=== PATIENT | male | born 1960 | race Caucasian/White ===

== ENCOUNTER 2023-03-07 19:00 | Inpatient (IN) ==
[2023-03-07 20:19] LABS: HEMOGLOBIN 7.7 g/dL (13.5-18.0); MEAN CORPUSCULAR VOLUME 85.6 fL (80.0-100.0)
[2023-03-07 20:26] LABS: BASOPHILS # (AUTO) 0.1 X10^3/uL (0.0-0.1); EOSINOPHILS # (AUTO) 0.2 x10^3/uL (0.0-0.2); EOSINOPHILS % (AUTO) 2.4 % (0.9-2.9); HEMATOCRIT 23.3 % (42.0-54.0); LYMPHOCYTES # (AUTO) 1.1 X10^3/uL (1.3-2.9); LYMPHOCYTES % (AUTO) 10.7 % (21.0-51.0); MEAN CORPUSCULAR HEMOGLOBIN 28.3 pg (27.0-34.0); MEAN CORPUSCULAR HGB CONC 33.1 g/dL (33.0-35.0); MEAN PLATELET VOLUME 6.8 fL (7.4-11.0); MONOCYTES # (AUTO) 0.7 x10^3/uL (0.3-0.8); MONOCYTES % (AUTO) 6.2 % (0.0-13.0); NEUTROPHILS # (AUTO) 8.4 x10^3/uL (2.2-4.8); NEUTROPHILS % (AUTO) 79.7 % (42.0-75.0); PLATELET COUNT 360 X10^3/uL (150.0-450.0); RED BLOOD COUNT 2.72 X10^6/uL (4.7-6.0); RED CELL DISTRIBUTION WIDTH 16.3 % (11.6-16.5); WHITE BLOOD COUNT 10.5 X10^3/uL (3.6-10.0)
[2023-03-07 20:28] LABS: ALBUMIN 1.7 g/dL (3.4-5.0); CALCIUM 7.7 mg/dL (8.5-10.1); CARBON DIOXIDE 24.5 mmol/L (21-32); COR CA(FOR HYPOALB) 9.5 mg/dL (8.5-10.1); CREATININE 1.78 mg/dL (0.70-1.30); POTASSIUM 4.3 mmol/L (3.5-5.1); TOTAL PROTEIN 6.6 g/dL (6.4-8.2)
--- NOTE | 2023-03-07 21:07 | DR.EXTPAIN ---
HPI Time seen Time Seen by Provider: 03/07/23 19:47 PCP Primary Care Physician: Sushila Complaint/Symptoms Chief Complaint:: Patient stated he was sent per Dr. Plascencia for IV antibiotics and surgery in the morning. COVID-19 Coronavirus risk:travel/contact w/high risk person: No Has patient experienced Coronavirus symptoms: No Nurses notes reviewed Nurses Notes Review: Yes Source History Provided: Patient Mode of arrival Mode of Arrival: Ambulatory Timing Onset of Chief Complaint: 03/07/23 Associated signs and symptoms Associated Signs and Symptoms: Swelling PMH PMH Past Medical History: Yes Past Medical History: Depression, Diabetes and Gout Past Surgical History: No Family History History of Family Medical Conditions: No Social History Do you use any recreational Drugs:: No Travel Risk Coronavirus risk:travel/contact w/high risk person: No Has patient experienced Coronavirus symptoms: No Infectious screening In the last 2 months have you had wt loss of >10#?: NO Have you had fever, night sweats or hemotysis?: No Have you traveled outside the country in the last 6 months?: No Isolation: Standard ROS Review of Systems Integumentary: Wound (Diabetic ulcer left foot) PE Vital Signs Vitals: Vital Signs Temperature 99.1 F Pulse Rate 84 Respiratory Rate 20 Blood Pressure 121/58 O2 Sat by Pulse Oximetry 97 General Limitations: No Limitations General Appearance: Alert and In No Apparent Distress Head Head Exam: Normal Inspection Eyes Eye exam: Normal Appearance, PERRL and EOMI ENT ENT Exam: Normal Exam Neck Neck Exam: Normal Inspection Chest Chest Inspection: Normal Inspection Respiratory Respiratory Exam: Normal Lung Sounds Bilat Cardiovascular Cardiovascular Exam: Regular Rate Abdominal Exam Abdominal Exam: Normal Inspection Lower Extremities Foot/Toe Exam: Tenderness, Swelling and Other (Diabetic foot ulcer; no evidence cellulitis) Back Back Exam: Normal Inspection Neurological Neurological Exam: Alert, Oriented X3, CN II-XII Intact, Normal Gait and Reflexes Normal Psychiatric Psychiatric Exam: Normal Affect and Normal Mood Skin Skin Exam: Warm and Dry COURSE Treatment Treatment: Labs, CTA, IVFs, antibiotics Reevaluation 1st: Improved ROR Labs Reviewed Laboratory Results Reviewed?: Yes 03/07/23 20:01 03/07/23 20:01 Laboratory: 03/07/23 19:53 Foot - Right Wound Gram Stain - Final WBC 10.5 X10^3/uL (3.6-10.0) H 03/07/23 20: RBC 2.72 X10^6/uL (4.7-6.0) L 03/07/23 20: Hgb 7.7 g/dL (13.5-18.0) L 03/07/23 20: Hct 23.3 % (42.0-54.0) L 03/07/23 20: MCV 85.6 fL (80.0-100.0) 03/07/23 20: MCH 28.3 pg (27.0-34.0) 03/07/23 20: MCHC 33.1 g/dL (33.0-35.0) 03/07/23 20: RDW 16.3 % (11.6-16.5) 03/07/23 20: Plt Count 360 X10^3/uL (150.0-450.0) 03/07/23 20: MPV 6.8 fL (7.4-11.0) L 03/07/23 20: Neut % (Auto) 79.7 % (42.0-75.0) H 03/07/23 20: Lymph % (Auto) 10.7 % (21.0-51.0) L 03/07/23 20: [place] % (Auto) 6.2 % (0.0-13.0) 03/07/23 20: Eos % (Auto) 2.4 % (0.9-2.9) 03/07/23 20: Baso % (Auto) 1.0 % (0.2-1.0) 03/07/23 20: Neut # (Auto) 8.4 x10^3/uL (2.2-4.8) H 03/07/23 20: Lymph # (Auto) 1.1 X10^3/uL (1.3-2.9) L 03/07/23 20: [place] # (Auto) 0.7 x10^3/uL (0.3-0.8) 03/07/23 20: Eos # (Auto) 0.2 x10^3/uL (0.0-0.2) 03/07/23 20: Baso # (Auto) 0.1 X10^3/uL (0.0-0.1) 03/07/23 20:01 Absolute Nucleated RBC 0.0 /100WBC 03/07/23 20:01 Sodium 127 mmol/L (136-145) L 03/07/23 20:01 Corrected Sodium 130 mmol/L (136-145) L 03/07/23 20:01 Potassium 4.3 mmol/L (3.5-5.1) 03/07/23 20:01 Chloride 97 mmol/L (98-107) L 03/07/23 20:01 Carbon Dioxide 24.5 mmol/L (21-32) 03/07/23 20:01 BUN 21 mg/dL (7-18) H 03/07/23 20:01 Creatinine 1.78 mg/dL (0.70-1.30) H 03/07/23 20:01 Est GFR (MDRD) Af Amer 50 (>60) L 03/07/23 20:01 Est GFR (MDRD) Non-Af 42 (>60) L 03/07/23 20:01 Glucose 206 mg/dL (65-99) H 03/07/23 20:01 Lactic Acid 1.0 mmol/L (0.4-2.0) 03/07/23 20:01 Calcium 7.7 mg/dL (8.5-10.1) L 03/07/23 20:01 Corrected Calcium 9.5 mg/dL (8.5-10.1) 03/07/23 20:01 Total Bilirubin 0.20 mg/dL (0.2-1.0) 03/07/23 20:01 AST 16 Units/L (15-37) 03/07/23 20:01 ALT 15 Units/L (12-78) 03/07/23 20:01 Alkaline Phosphatase 221 Units/L (46-116) H 03/07/23 20:01 Total Protein 6.6 g/dL (6.4-8.2) 03/07/23 20:01 Albumin 1.7 g/dL (3.4-5.0) L 03/07/23 20:01 Globulin 4.9 g/dL (2.5-4.5) H 03/07/23 20:01 Albumin/Globulin Ratio 0.3 Ratio (1.1-2.1) L 03/07/23 20:01 XRAY XRAY Interpreted by: Radiologist Opioid Opioid Risk Tool Age (Rigoberto box if 16-45): No History of Preadolescent Sexual Abuse: No Total: 0 Total Score Risk Category: Low Risk Copyright: Raj BELLA predicting aberrant behaviors Discharge Plan Diagnosis Discharge Problem: Diabetic foot ulcer, Anemia Discharge Plan Patient Disposition: HOME, SELF-CARE Condition: Stable Prescriptions: No Action polysaccharide iron complex [iFerex 150] 150 mg iron Capsule 150 mg PO DAILY loratadine 10 mg Tablet 10 mg PO DAILY Jardiance 25 mg Tablet 25 mg PO DAILY pioglitazone 15 mg tablet 15 mg PO QDAY gabapentin 400 mg capsule 400 mg PO DAILY glimepiride 4 mg tablet 4 mg PO QDAY furosemide 20 mg tablet 20 mg PO QDAY gabapentin 100 mg capsule 100 mg PO DAILY lovastatin 20 mg tablet 20 mg PO QDAY sertraline 50 mg tablet 50 mg PO QDAY Health Concerns: Post Hospitalization: new medications and changes needed to prevent readmission or further decline. Pt educated and given instructions on all concerns. Plan of Treatment: Continue with present treatment and follow up plan. Pt is to keep follow up appointment as instructed and take medications as ordered. Orders to Discharge Patient Discharge Orders: Discharge (Routine); Ordered 03/07/23 Ordered By: Jean Nelson Follow ups/Referrals Follow ups/Referrals: MILTON JAFFE [Primary Care Provider] - 3 days Instructions Stand Alone Forms: Post Hospital Follow Up Care
[2023-03-07] MEDS ORDERED: OMNIPAQUE 350 mg/mL 50 mL BTL 50 ML ONE (21:19)
[2023-03-07] MEDS ORDERED: NS 100 ML IV 100 ML ONE (21:19)
[2023-03-07] MEDS ORDERED: OMNIPAQUE 350 mg/mL 100 mL BTL 100 ML ONE (21:19)
[2023-03-07] MEDS ORDERED: CLEOCIN 600 MG IV PREMIX 600 MG/50 ML BAG IV ONE (22:34)
[2023-03-07] MEDS ORDERED: NS 1,000 ML IV 1,000 ML ONE (22:34)
[2023-03-07] MEDS: CLEOCIN 600 MG IV PREMIX 600 MG/50 ML BAG IV SCH (22:41)
[2023-03-07] MEDS: NS 1,000 ML IV 1,000 ML IV SCH (22:41)
--- NOTE | 2023-03-07 22:48 | CT ---
EXAM:LOW EXT CTA W&W/O CONHISTORY:LOWER extremity EDEMA;COMPARISON:NoneTECHNIQUE:CT angiography of the bilateral lower extremities was performed before and after intravenous contrast. Three-dimensional reconstructions and/or MIPS images were produced and reviewed.FINDINGS:Precontrast images demonstrate moderate multifocal arterial calcifications. There is no pelvic free fluid. The colon portions visible appear appropriate. Portions of the kidneys visible appear appropriate. No free air. Small fatty inguinal hernias. There are enlarged right inguinal lymph nodes with a business representative node spanning 2.3 cm short axis dimension.There is advanced atherosclerotic plaque in the distal aorta extending into the common iliac bifurcation. The distal aorta is patent. The common iliac arteries are patent. The right internal and external iliac arteries are patent. The left internal and external iliac arteries are patent. The bilateral common femoral arteries are patent.The right superficial femoral artery demonstrates moderate focal narrowing above the knee.The left superficial femoral artery demonstrates mild focal narrowing at the same level. The bilateral popliteal arteries are patent.The right calf trifurcation is patent with flow noted to the ankle and foot. The left calf trifurcation demonstrates moderate multifocal atherosclerotic plaque in the posterior tibial artery with flow noted to the ankle and foot.There is moderate bilateral lower extremity edema. No tracking gas or abscess. No fracture or bony erosion.IMPRESSION:Multifocal atherosclerotic plaque most pronounced in the left posterior tibial artery.Right inguinal lymphadenopathy, nonspecific and of uncertain cause.Severe bilateral lower extremity soft tissue edema/anasarca.Dose reduction techniques including automated exposure control (AEC) and adjustment of mA and kv were utilized.THIS IS AN ELECTRONICALLY VERIFIED FINAL [id number]/07/2023 10:44 PM - Electronically signed by Rodríguez Villavicencio MD
[2023-03-07] MEDS ORDERED: CLEOCIN VIAL 600 MG IV SCH (23:45)
[2023-03-07] MEDS ORDERED: MORPHINE SULFATE INJ 4 MG IVP PRN (23:54)
[2023-03-07] MEDS ORDERED: ZOFRAN INJ 4 MG VIAL IVP PRN (23:55)
[2023-03-08 01:21] VITALS: BMI 32.5
[2023-03-08] MEDS: CLEOCIN 600 MG IV PREMIX 600 MG/50 ML BAG IV SCH ×3 (05:32→21:15)
[2023-03-08 06:28] LABS: BASOPHILS # (AUTO) 0.1 X10^3/uL (0.0-0.1); BASOPHILS % (AUTO) 0.6 % (0.2-1.0); EOSINOPHILS # (AUTO) 0.2 x10^3/uL (0.0-0.2); EOSINOPHILS % (AUTO) 2.2 % (0.9-2.9); HEMATOCRIT 23.9 % (42.0-54.0); LYMPHOCYTES # (AUTO) 0.9 X10^3/uL (1.3-2.9); MEAN CORPUSCULAR HEMOGLOBIN 28.7 pg (27.0-34.0); MEAN CORPUSCULAR HGB CONC 33.5 g/dL (33.0-35.0); MEAN CORPUSCULAR VOLUME 85.7 fL (80.0-100.0); MEAN PLATELET VOLUME 6.9 fL (7.4-11.0); MONOCYTES # (AUTO) 0.7 x10^3/uL (0.3-0.8); MONOCYTES % (AUTO) 6.9 % (0.0-13.0); NEUTROPHILS % (AUTO) 81.3 % (42.0-75.0); PLATELET COUNT 356 X10^3/uL (150.0-450.0); RED BLOOD COUNT 2.79 X10^6/uL (4.7-6.0); WHITE BLOOD COUNT 9.9 X10^3/uL (3.6-10.0)
[2023-03-08 06:30] LABS: ALANINE AMINOTRANSFERASE 16 Units/L (12-78); ALBUMIN 1.5 g/dL (3.4-5.0); ALKALINE PHOSPHATASE 237 Units/L (46-116); ASPARTATE AMINO TRANSFERASE 18 Units/L (15-37); BLOOD UREA NITROGEN 20 mg/dL (7-18); CALCIUM 7.5 mg/dL (8.5-10.1); CARBON DIOXIDE 24.2 mmol/L (21-32); CHLORIDE 101 mmol/L (98-107); COR CA(FOR HYPOALB) 9.5 mg/dL (8.5-10.1); COR NA(FOR HYPERGLY) 132 mmol/L (136-145); GLUCOSE 150 mg/dL (65-99); POTASSIUM 4.5 mmol/L (3.5-5.1); SODIUM 131 mmol/L (136-145); TOTAL PROTEIN 6.3 g/dL (6.4-8.2); eGFR NON BLACK RACES 55 (>60)
--- NOTE | 2023-03-08 13:53 | DR.H&P ---
H&P History & Physical for Day of: H&P Date: 03/08/23 Chief Complaint Chief Complaint: Right foot pain and swelling Allergies Allergies Allergy/AdvReac Type Severity Reaction Status Date / Time No Known Allergies Allergy Verified 03/07/23 19:45 History of Present Illness History of Present Illness: Patient is a 63-year-old male presenting with right foot pain and swelling. He does have a history of diabetic ulcers and cellulitis of the foot and leg. Labs/imaging: WBC 9.9, hemoglobin 8, platelets 356, sodium 132, potassium 4.5, creatinine 1.40, glucose 150, lower extremity CTA was obtained that revealed: Multifocal atherosclerotic plaque most pronounced in the left posterior tibial artery. Right inguinal lymphadenopathy, nonspecific and of uncertain cause. Severe bilateral lower extremity soft tissue edema/anasarca. Patient admitted for diabetic ulcer and cellulitis. Podiatry has been consultedDr. Hlad. Plan for possible incision and drainage of wound. We will follow-up recommendations. MRI has also been ordered. Patient is currently IV clindamycin for antibiotic coverage. Wound cultures pending. We will continue to closely monitor and follow-up labs/imaging. Past Medical History Past Medical History: Depression, Diabetes and Gout Family History Family Medical History: Diabetes Mellitus, Heart Failure and Hypertension Social History Does patient currently use any type of tobacco product: Yes Have you used tobacco products in the last 12 months: Yes Type of Tobacco Use: Cigarettes How many years tobacco product used: 50 Alcohol Use: Occasionally Drug Use: None Medications Home Medications: Home Medications Medication Instructions Recorded Confirmed Type empagliflozin 25 mg tablet 25 mg PO DAILY 11/15/22 11/15/22 History (Jardiance) loratadine 10 mg tablet 10 mg PO DAILY 11/15/22 11/15/22 History polysaccharide iron complex 150 mg 150 mg PO DAILY 11/15/22 11/15/22 History iron capsule (iFerex 150) furosemide 20 mg tablet 20 mg PO QDAY 03/07/23 03/07/23 History gabapentin 100 mg capsule 100 mg PO DAILY 03/07/23 03/07/23 History gabapentin 400 mg capsule 400 mg PO DAILY 03/07/23 03/07/23 History glimepiride 4 mg tablet 4 mg PO QDAY 03/07/23 03/07/23 History lovastatin 20 mg tablet 20 mg PO QDAY 03/07/23 03/07/23 History pioglitazone 15 mg tablet 15 mg PO QDAY 03/07/23 03/07/23 History sertraline 50 mg tablet 50 mg PO QDAY 03/07/23 03/07/23 History Labs 03/08/23 05:09 03/08/23 05:09 Labs: 03/07/23 19:53 Foot - Right Wound Gram Stain - Final 03/07/23 19:53 Foot - Right Wound Culture - Preliminary Laboratory WBC 9.9 X10^3/uL (3.6-10.0) 03/08/23 05:09 RBC 2.79 X10^6/uL (4.7-6.0) L 03/08/23 05:09 Hgb 8.0 g/dL (13.5-18.0) L 03/08/23 05:09 Hct 23.9 % (42.0-54.0) L 03/08/23 05:09 MCV 85.7 fL (80.0-100.0) 03/08/23 05:09 MCH 28.7 pg (27.0-34.0) 03/08/23 05:09 MCHC 33.5 g/dL (33.0-35.0) 03/08/23 05:09 RDW 16.0 % (11.6-16.5) 03/08/23 05:09 Plt Count 356 X10^3/uL (150.0-450.0) 03/08/23 05:09 MPV 6.9 fL (7.4-11.0) L 03/08/23 05:09 Neut % (Auto) 81.3 % (42.0-75.0) H 03/08/23 05:09 Lymph % (Auto) 9.0 % (21.0-51.0) L 03/08/23 05:09 [place] % (Auto) 6.9 % (0.0-13.0) 03/08/23 05:09 Eos % (Auto) 2.2 % (0.9-2.9) 03/08/23 05:09 Baso % (Auto) 0.6 % (0.2-1.0) 03/08/23 05:09 Neut # (Auto) 8.0 x10^3/uL (2.2-4.8) H 03/08/23 05:09 Lymph # (Auto) 0.9 X10^3/uL (1.3-2.9) L 03/08/23 05:09 [place] # (Auto) 0.7 x10^3/uL (0.3-0.8) 03/08/23 05:09 Eos # (Auto) 0.2 x10^3/uL (0.0-0.2) 03/08/23 05:09 Baso # (Auto) 0.1 X10^3/uL (0.0-0.1) 03/08/23 05:09 Absolute Nucleated RBC 0.0 /100WBC 03/08/23 05:09 Sodium 131 mmol/L (136-145) L 03/08/23 05:09 Corrected Sodium 132 mmol/L (136-145) L 03/08/23 05:09 Potassium 4.5 mmol/L (3.5-5.1) 03/08/23 05:09 Chloride 101 mmol/L (98-107) 03/08/23 05:09 Carbon Dioxide 24.2 mmol/L (21-32) 03/08/23 05:09 BUN 20 mg/dL (7-18) H 03/08/23 05:09 Creatinine 1.40 mg/dL (0.70-1.30) H 03/08/23 05:09 Est GFR (MDRD) Af Amer > 60 (>60) 03/08/23 05:09 Est GFR (MDRD) Non-Af 55 (>60) L 03/08/23 05:09 Glucose 150 mg/dL (65-99) H 03/08/23 05:09 POC Glucose (mg/dL) 142 mg/dL (65-99) H 03/08/23 11:14 Lactic Acid 1.0 mmol/L (0.4-2.0) 03/07/23 20:01 Calcium 7.5 mg/dL (8.5-10.1) L 03/08/23 05:09 Corrected Calcium 9.5 mg/dL (8.5-10.1) 03/08/23 05:09 Total Bilirubin 0.20 mg/dL (0.2-1.0) 03/08/23 05:09 AST 18 Units/L (15-37) 03/08/23 05:09 ALT 16 Units/L (12-78) 03/08/23 05:09 Alkaline Phosphatase 237 Units/L (46-116) H 03/08/23 05:09 Total Protein 6.3 g/dL (6.4-8.2) L 03/08/23 05:09 Albumin 1.5 g/dL (3.4-5.0) L 03/08/23 05:09 Globulin 4.8 g/dL (2.5-4.5) H 03/08/23 05:09 Albumin/Globulin Ratio 0.3 Ratio (1.1-2.1) L 03/08/23 05:09 Review of Systems Constitutional: No Symptoms Reported Eyes: No Symptoms Reported ENT: No Symptoms Reported Respiratory: No Symptoms Reported Cardiovascular: No Symptoms Reported Gastrointestinal: No Symptoms Reported Genitourinary: No Symptoms Reported Musculoskeletal: Foot Pain Skin: No Symptoms Reported Neurological: No Symptoms Reported Physical Exam Vital Signs: Vital Signs Temperature 97.9 F Temperature 98.9 F Pulse Rate [Left Radial] 80 Pulse Rate [Left Radial] 90 Respiratory Rate 20 Respiratory Rate 20 Blood Pressure [Left Arm] 156/68 Blood Pressure [Left Arm] 157/72 O2 Sat by Pulse Oximetry 92 O2 Sat by Pulse Oximetry 90 Oriented: Normal Eyes: Normal Ear: Normal Nose: Normal Throat: Normal Respiratory: Clear Throughout Cardiovascular: Normal : Normal Auscultation: Bowel Sounds: Normal Palpation: Normal Tenderness: Normal Skin: Normal Musculoskeletal: Right and Foot (erythema, diabetic ulcer) Psychiatric: Normal Mood Description: Calm and Appropriate Affect: Normal Speech Pattern: Clear and Appropriate Assessment/Plan (1) Diabetic foot ulcer: Status: Acute (2) Cellulitis of foot, right: Status: Acute (3) Infected wound: Status: Acute Review H&P Reviewed: Yes Patient was examined?: Yes
[2023-03-08] MEDS: NS 1,000 ML IV 1,000 ML IV SCH (13:55)
[2023-03-08] MEDS ORDERED: BETADINE SOLN ONE (15:32)
[2023-03-08] MEDS: MARCAINE 0.25% INJ ONE ×2 (15:32→15:57)
--- NOTE | 2023-03-08 15:45 | MRI ---
EXAM:EXT LOWER JOINT W/O CONHISTORY:eval for septic joint, RIGHT FOOT ;COMPARISON:Right foot radiograph from 03/08/2023.TECHNIQUE:Multiplanar multisequence MRI of the right without contrast.FINDINGS:Limitations: Lack of IV contrast. Wide [id number] limits spatial resolution and therefore overall evaluation. Moderate motion artifact on the sagittal sequences. There is failure of fat saturation such as on the coronal T2 sequence image 12 in the forefoot.There is a plantar ulceration at the level of the great toe metatarsal head image 16 coronal T2 fat-sat. Fluid extends toward the great toe MTP joint. There is a moderate great toe MTP joint effusion. Fluid signal surrounds the flexor and extensor hallucis tendons at the level of the great toe metatarsal head image 16 coronal T2 fat-sat. The tibial and fibular hallux sesamoid bones do not convincingly demonstrate bright T1 signal on image 25 series 801 and image 23 and 26 of series 701 and likely have osteomyelitis. There is likely bone marrow edema at base and shaft of the great toe proximal phalanx and head and shaft of the great toe metatarsal. No definite low T1 signal in these bones however. There is moderate subcutaneous edema over the dorsum of the foot. There is mild thickening of the plantar fascia in the midfoot image 31 coronal T2.IMPRESSION:Significantly limited study. Plantar ulceration at the level of the great toe metatarsal head. Moderate fluid collection/effusion of the great toe MTP joint. This is suspicious for septic arthritis. Fluid surrounds the flexor and extensor tendons of the great toe suspicious for tenosynovitis. Suspect osteomyelitis involving at least the tibia and fibular hallux sesamoid bones.Consider repeat study with smaller [id number], addition of IV contrast, and decreased motion artifact if able.THIS IS AN ELECTRONICALLY VERIFIED FINAL [id number]/08/2023 3:37 PM - Electronically signed by Misbah Rivera MD
[2023-03-08] MEDS ORDERED: NS 1,000 ML IV 1,000 ML ONE (16:15)
[2023-03-08] MEDS ORDERED: VERSED ONE (16:53)
[2023-03-08] MEDS ORDERED: FENTANYL VIAL INJ 100 mcg ONE (16:53)
[2023-03-08] MEDS ORDERED: DIPRIVAN VIAL 20 ML ONE (16:53)
--- NOTE | 2023-03-08 17:42 | RAD ---
EXAM:FOOT, RIGHT three-viewHISTORY:EVAL FOR OSTEO MYL.;COMPARISON:11/16/2019FINDINGS:Possi ble 4th proximal phalanx fracture. The remaining visualized osseous structures appear intact. Edema throughout the foot. Calcaneal enthesophytes.IMPRESSION:Possible 4th proximal phalanx fracture.No radiographic evidence of osteomyelitis.THIS IS AN ELECTRONICALLY VERIFIED FINAL [id number]/08/2023 5:38 PM - Electronically signed by Reji Nix MD
--- NOTE | 2023-03-08 17:58 | DR.OB ---
OB QUICK NOTE Assessment/Plan (1) Diabetic foot ulcer: Assessment/Plan: Patient taken to OR today for septic first MPJ. cement placed and washed out. will likely need to go back to OR next week on saturday. Dr. Dailey likely to take saturday. may need hallux amputation due to soft tissue involvement. bx taken of phalanx and metatarasal. flexor tendon with full involvement and was excised out through wound. sesamoids removed as appeared with osteo. patien to remain off the foot through weekend. dressing to be left intact as well. do not change. (2) Cellulitis of foot, right: (3) Infected wound: Assessment/Plan: continue IV abx. swab cx taken. awaiting results. may need IVs on discharge. has severe DM foot infection and will need to return to OR likely saturday.
[2023-03-08] MEDS ORDERED: SNACK - Diabetic Appropriate PO SCH (20:00)
[2023-03-09] MEDS: CLEOCIN 600 MG IV PREMIX 600 MG/50 ML BAG IV SCH (05:50)
[2023-03-09 06:22] LABS: BASOPHILS # (AUTO) 0.1 X10^3/uL (0.0-0.1); BASOPHILS % (AUTO) 0.6 % (0.2-1.0); EOSINOPHILS # (AUTO) 0.1 x10^3/uL (0.0-0.2); EOSINOPHILS % (AUTO) 1.3 % (0.9-2.9); HEMATOCRIT 22.8 % (42.0-54.0); HEMOGLOBIN 7.2 g/dL (13.5-18.0); MEAN CORPUSCULAR HEMOGLOBIN 27.3 pg (27.0-34.0); MEAN CORPUSCULAR HGB CONC 31.7 g/dL (33.0-35.0); MEAN CORPUSCULAR VOLUME 85.9 fL (80.0-100.0); MEAN PLATELET VOLUME 6.9 fL (7.4-11.0); MONOCYTES # (AUTO) 0.8 x10^3/uL (0.3-0.8); NEUTROPHILS # (AUTO) 9.1 x10^3/uL (2.2-4.8); NEUTROPHILS % (AUTO) 82.1 % (42.0-75.0); PLATELET COUNT 345 X10^3/uL (150.0-450.0); RED BLOOD COUNT 2.65 X10^6/uL (4.7-6.0); RED CELL DISTRIBUTION WIDTH 16.2 % (11.6-16.5); WHITE BLOOD COUNT 11.1 X10^3/uL (3.6-10.0)
[2023-03-09 06:44] LABS: ALANINE AMINOTRANSFERASE 14 Units/L (12-78); ALBUMIN 1.4 g/dL (3.4-5.0); ALKALINE PHOSPHATASE 271 Units/L (46-116); ASPARTATE AMINO TRANSFERASE 21 Units/L (15-37); BLOOD UREA NITROGEN 20 mg/dL (7-18); CALCIUM 7.3 mg/dL (8.5-10.1); CARBON DIOXIDE 21.9 mmol/L (21-32); CHLORIDE 100 mmol/L (98-107); COR CA(FOR HYPOALB) 9.4 mg/dL (8.5-10.1); COR NA(FOR HYPERGLY) 130 mmol/L (136-145); GLUCOSE 133 mg/dL (65-99); POTASSIUM 4.5 mmol/L (3.5-5.1); SODIUM 129 mmol/L (136-145); TOTAL PROTEIN 6.1 g/dL (6.4-8.2); eGFR NON BLACK RACES > 60 (>60)
--- NOTE | 2023-03-09 07:22 | NOTE.SOAP ---
Soap Note Note for Day of Date of Exam: 03/09/23 Subjective Data Subjective Data: patient sent bedside. patient has been difficult for nurses last night, including peeing on the floor. patient has been walking around room. snicker bars on table. patient angry about his children and state he has one pill head son and two crazy daughters that i need to talk to to make sure they help him at home. patient states he cannot get groceries on his bike or do anything because he has to ride his bike. Objective Data Objective Data: dressing clean dry and intact plantar foot. he has no evidence of necrosis. toe still with purple on it and has CFT however this AM. dressing left intact as has abx plug in wound. Assessment Assessment: 63 M with severe DM foot infection and osteomyelitis right foot. Plan Plan: keep dressing clean and dry. discussed with him i don't want him walking around continue current IV abx. cx taken in OR. we discussed his actions in the hospital and specifically peeing on the floor and proper behavior. I discussed this type of behavior is not acceptable. I discussed with him discharge plans, im not sure he will be able to care for himself and may need care facility as he may need IV abx and will be NWB on that foot. he likely will have wound VAC on the right foot after saturday OR as well. plan will be to go to OR saturday with Dr. Dailey my fellow for further washout with Wound VAC application. Anemia- patient had small amount of blood loss yesterday. currently not symptomatic. will have to see tomorrow but may need a unit of PRB if becomes symptomatic or drops any lower. Cr has stabilized. has increased leukocytosis however likely post operative response from OR. patient had septic first MPJ and has been debrided with local abx placement with cement.
[2023-03-09] MEDS ORDERED: NS 100 ML IV 100 ML with VENOFER 100 MG IV NR ×2 (09:20)
[2023-03-09] MEDS ORDERED: CORTEF ONE (09:50)
[2023-03-09] MEDS: ACTOS PO SCH (09:55)
[2023-03-09] MEDS: GLUCOPHAGE XR 24-HR PO SCH ×2 (09:55→20:40)
[2023-03-09] MEDS: CORTEF PO SCH ×2 (09:55→16:21)
[2023-03-09] MEDS: NS 1,000 ML IV 1,000 ML IV SCH ×2 (09:56→16:21)
[2023-03-09] MEDS: ZOSYN VIAL 3.375 GRAMS 3.375 G in NS 100 ML IV 100 ML IV SCH ×2 (13:55→22:00)
[2023-03-10] MEDS: NovoLIN R (or HumuLIN R) SUBCUT PRN (05:43)
[2023-03-10] MEDS: ZOSYN VIAL 3.375 GRAMS 3.375 G in NS 100 ML IV 100 ML IV SCH ×4 (05:44→21:02)
[2023-03-10 05:46] LABS: BASOPHILS # (AUTO) 0.1 X10^3/uL (0.0-0.1); BASOPHILS % (AUTO) 0.6 % (0.2-1.0); EOSINOPHILS # (AUTO) 0.2 x10^3/uL (0.0-0.2); EOSINOPHILS % (AUTO) 2.8 % (0.9-2.9); HEMOGLOBIN 7.1 g/dL (13.5-18.0); LYMPHOCYTES # (AUTO) 1.3 X10^3/uL (1.3-2.9); LYMPHOCYTES % (AUTO) 14.6 % (21.0-51.0); MEAN CORPUSCULAR HEMOGLOBIN 27.8 pg (27.0-34.0); MEAN CORPUSCULAR HGB CONC 32.5 g/dL (33.0-35.0); MEAN CORPUSCULAR VOLUME 85.6 fL (80.0-100.0); MEAN PLATELET VOLUME 6.7 fL (7.4-11.0); MONOCYTES # (AUTO) 0.7 x10^3/uL (0.3-0.8); MONOCYTES % (AUTO) 8.1 % (0.0-13.0); NEUTROPHILS # (AUTO) 6.4 x10^3/uL (2.2-4.8); NEUTROPHILS % (AUTO) 73.9 % (42.0-75.0); PLATELET COUNT 365 X10^3/uL (150.0-450.0); RED BLOOD COUNT 2.57 X10^6/uL (4.7-6.0); RED CELL DISTRIBUTION WIDTH 16.3 % (11.6-16.5); WHITE BLOOD COUNT 8.6 X10^3/uL (3.6-10.0)
[2023-03-10 05:57] LABS: ALANINE AMINOTRANSFERASE 15 Units/L (12-78); ALBUMIN 1.3 g/dL (3.4-5.0); ALKALINE PHOSPHATASE 256 Units/L (46-116); ASPARTATE AMINO TRANSFERASE 18 Units/L (15-37); BLOOD UREA NITROGEN 22 mg/dL (7-18); CALCIUM 7.4 mg/dL (8.5-10.1); CARBON DIOXIDE 23.2 mmol/L (21-32); CHLORIDE 102 mmol/L (98-107); COR CA(FOR HYPOALB) 9.6 mg/dL (8.5-10.1); COR NA(FOR HYPERGLY) 134 mmol/L (136-145); CREATININE 1.32 mg/dL (0.70-1.30); GLUCOSE 198 mg/dL (65-99); POTASSIUM 4.3 mmol/L (3.5-5.1); SODIUM 132 mmol/L (136-145); TOTAL PROTEIN 6.1 g/dL (6.4-8.2); eGFR NON BLACK RACES 59 (>60)
[2023-03-10] MEDS ORDERED: CORTEF ONE ×2 (08:03→16:59)
[2023-03-10] MEDS: ACTOS PO SCH (08:10)
[2023-03-10] MEDS: CORTEF PO SCH ×2 (08:11→17:03)
[2023-03-10] MEDS: GLUCOPHAGE XR 24-HR PO SCH (08:13)
[2023-03-10] MEDS: NS 1,000 ML IV 1,000 ML IV SCH ×3 (08:39→20:14)
[2023-03-10] MEDS: ZOLOFT PO SCH (09:47)
[2023-03-10] MEDS ORDERED: AMARYL TAB 4 MG PO SCH (10:00)
[2023-03-10] MEDS ORDERED: FARXIGA PO SCH (10:00)
[2023-03-10] MEDS ORDERED: CATAPRES TAB 0.1 MG PO ONE (15:42)
[2023-03-10] MEDS ORDERED: CATAPRES TAB 0.1 MG ONE (15:44)
[2023-03-10] MEDS ORDERED: APRESOLINE INJ 20 MG VIAL IVP ONE (19:29)
--- NOTE | 2023-03-10 20:27 | EKG ---
Test Reason : Hypertension protocol Blood Pressure : */* mmHG Vent. Rate : 74 BPM Atrial Rate : 74 BPM P-R Int : 158 ms QRS Dur : 106 ms QT Int : 418 ms P-R-T Axes : 66 27 38 degrees QTc Int : 463 ms Normal sinus rhythm Normal ECG Confirmed by Brent Judge MD ([id number]) on 03/11/2023 11:06:48 AM Referred By: Confirmed By: Brent Judge MD
--- NOTE | 2023-03-10 23:58 | DR.CONSULT ---
CONSULT Consultation for Day of: Date: 03/10/23 Allergies Allergies Allergy/AdvReac Type Severity Reaction Status Date / Time No Known Allergies Allergy Verified 03/07/23 19:45 History of Present Illness History of Present Illness: This is a 63 year old male with a history of diabetes and diabetic foot ulcers with right foot pain and swelling and subsequently has had incision and drainage of multiple abscesses of the right foot. I was asked to see him in consultation in regards to his vascular supply of the legs. He had lower extremity arterial Doppler performed in November of this year which for near normal with only mild disease right popliteal and left femoral arteries but otherwise triphasic flow. On admission he had a CT angiogram which shows no significant disease requiring intervention with only significant plaque of the left posterior tibial artery. Patient is a smoker Past Medical History Past Medical History: Depression, Diabetes and Gout Family History Family Medical History: Diabetes Mellitus, Heart Failure and Hypertension Social History Does patient currently use any type of tobacco product: Yes Have you used tobacco products in the last 12 months: Yes Type of Tobacco Use: Cigarettes How many years tobacco product used: 50 Alcohol Use: Occasionally Drug Use: None Medications Home Medications: No Known Allergies Allergy (Verified 03/07/23 19:45) CONTINUE taking the following medications furosemide 20 mg tablet 20 mg PO QDAY 03/07/23 [History] gabapentin 100 mg capsule 100 mg PO DAILY 03/07/23 [History] gabapentin 400 mg capsule 400 mg PO DAILY 03/07/23 [History] lovastatin 20 mg tablet 20 mg PO QDAY 03/07/23 [History] pioglitazone 15 mg tablet 15 mg PO QDAY 03/07/23 [History] sertraline 50 mg tablet 50 mg PO QDAY 03/07/23 [History] Review of Systems Constitutional: See HPI Eyes: No Symptoms Reported ENT: No Symptoms Reported Respiratory: No Symptoms Reported Cardiovascular: No Symptoms Reported Gastrointestinal: No Symptoms Reported Genitourinary: No Symptoms Reported Musculoskeletal: See HPI Skin: See HPI Neurological: No Symptoms Reported Physical Exam Vital Signs: Vital Signs Temperature 98.9 F Temperature 97.7 F Pulse Rate [Left Radial] 76 Pulse Rate [Left Radial] 74 Respiratory Rate 20 Respiratory Rate 20 Blood Pressure [Left Arm] 192/100 Blood Pressure [Left Arm] 169/79 Blood Pressure [Left Arm] 191/85 Blood Pressure [Left Arm] 197/101 O2 Sat by Pulse Oximetry 95 O2 Sat by Pulse Oximetry 98 Oriented: Normal, Time, Person and Place Eyes: Normal Ear: Normal Nose: Normal Throat: Normal Respiratory: Clear Throughout Cardiovascular: Normal : Normal Palpation: Normal Tenderness: Normal Skin: Other (multiple surgical wounds to the right foot) Musculoskeletal: Normal Psychiatric: Anxiety Mood Description: Angry Affect: Normal Speech Pattern: Clear Plan (1) Diabetic foot ulcer: Status: Acute (2) Cellulitis of foot, right: Status: Acute (3) Infected wound: Status: Acute Plan: The patient has had incision and drainage of abscesses of the right foot but at this time has no indication for any type of arterial intervention.
[2023-03-11] MEDS: ZOSYN VIAL 3.375 GRAMS 3.375 G in NS 100 ML IV 100 ML IV SCH ×3 (05:13→21:05)
[2023-03-11 05:31] LABS: BASOPHILS # (AUTO) 0.1 X10^3/uL (0.0-0.1); BASOPHILS % (AUTO) 1.1 % (0.2-1.0); EOSINOPHILS # (AUTO) 0.3 x10^3/uL (0.0-0.2); EOSINOPHILS % (AUTO) 2.6 % (0.9-2.9); HEMOGLOBIN 7.6 g/dL (13.5-18.0); LYMPHOCYTES # (AUTO) 1.4 X10^3/uL (1.3-2.9); LYMPHOCYTES % (AUTO) 14.8 % (21.0-51.0); MEAN CORPUSCULAR HEMOGLOBIN 28.1 pg (27.0-34.0); MEAN CORPUSCULAR VOLUME 85.1 fL (80.0-100.0); MEAN PLATELET VOLUME 6.4 fL (7.4-11.0); MONOCYTES # (AUTO) 0.6 x10^3/uL (0.3-0.8); MONOCYTES % (AUTO) 6.4 % (0.0-13.0); NEUTROPHILS # (AUTO) 7.3 x10^3/uL (2.2-4.8); NEUTROPHILS % (AUTO) 75.1 % (42.0-75.0); PLATELET COUNT 399 X10^3/uL (150.0-450.0); RED CELL DISTRIBUTION WIDTH 16.4 % (11.6-16.5); WHITE BLOOD COUNT 9.8 X10^3/uL (3.6-10.0)
[2023-03-11 05:42] LABS: ALANINE AMINOTRANSFERASE 18 Units/L (12-78); ALBUMIN 1.3 g/dL (3.4-5.0); ALKALINE PHOSPHATASE 279 Units/L (46-116); ASPARTATE AMINO TRANSFERASE 23 Units/L (15-37); BLOOD UREA NITROGEN 21 mg/dL (7-18); CALCIUM 7.4 mg/dL (8.5-10.1); CARBON DIOXIDE 23.3 mmol/L (21-32); CHLORIDE 105 mmol/L (98-107); COR CA(FOR HYPOALB) 9.6 mg/dL (8.5-10.1); COR NA(FOR HYPERGLY) 135 mmol/L (136-145); CREATININE 1.11 mg/dL (0.70-1.30); GLUCOSE 144 mg/dL (65-99); POTASSIUM 4.5 mmol/L (3.5-5.1); SODIUM 134 mmol/L (136-145); TOTAL PROTEIN 6.1 g/dL (6.4-8.2); eGFR NON BLACK RACES > 60 (>60)
[2023-03-11] MEDS ORDERED: MARCAINE 0.25% INJ ONE (07:21)
[2023-03-11] MEDS ORDERED: BETADINE SOLN ONE (07:21)
[2023-03-11] MEDS ORDERED: NS 1,000 ML IV 1,000 ML ONE (07:36)
[2023-03-11] MEDS ORDERED: ANCEF VIAL 1 GRAM ONE (07:49)
[2023-03-11] MEDS ORDERED: NS 100 ML IV 100 ML ONE (07:49)
[2023-03-11] MEDS: CORTEF PO SCH ×2 (08:12→17:45)
[2023-03-11] MEDS ORDERED: FENTANYL VIAL INJ 100 mcg ONE (08:33)
[2023-03-11] MEDS ORDERED: DIPRIVAN VIAL 20 ML ONE (08:33)
[2023-03-11] MEDS ORDERED: VERSED ONE (08:33)
[2023-03-11] MEDS ORDERED: PROCRIT or EPOGEN VIAL 20,000 UNITS SC SCH (09:19)
[2023-03-11] MEDS: ZOLOFT PO SCH (11:25)
[2023-03-11] MEDS: ACTOS PO SCH (11:25)
[2023-03-11] MEDS: NICOTINE PATCH TD SCH (16:00)
[2023-03-11] MEDS ORDERED: CORTEF ONE (17:34)
[2023-03-11] MEDS: NS 1,000 ML IV 1,000 ML IV SCH (21:05)
[2023-03-12] MEDS ORDERED: CORTEF ONE ×2 (05:32→17:01)
[2023-03-12] MEDS: NS 1,000 ML IV 1,000 ML IV SCH ×2 (05:37→15:22)
[2023-03-12] MEDS: ZOSYN VIAL 3.375 GRAMS 3.375 G in NS 100 ML IV 100 ML IV SCH (05:37)
[2023-03-12] MEDS: CORTEF PO SCH ×2 (06:03→17:05)
[2023-03-12 06:07] LABS: BASOPHILS # (AUTO) 0.1 X10^3/uL (0.0-0.1); BASOPHILS % (AUTO) 0.9 % (0.2-1.0); EOSINOPHILS # (AUTO) 0.4 x10^3/uL (0.0-0.2); EOSINOPHILS % (AUTO) 3.4 % (0.9-2.9); HEMATOCRIT 25.3 % (42.0-54.0); HEMOGLOBIN 8.3 g/dL (13.5-18.0); LYMPHOCYTES # (AUTO) 1.5 X10^3/uL (1.3-2.9); LYMPHOCYTES % (AUTO) 14.1 % (21.0-51.0); MEAN CORPUSCULAR HEMOGLOBIN 27.9 pg (27.0-34.0); MEAN CORPUSCULAR HGB CONC 32.8 g/dL (33.0-35.0); MEAN CORPUSCULAR VOLUME 84.9 fL (80.0-100.0); MEAN PLATELET VOLUME 6.4 fL (7.4-11.0); MONOCYTES # (AUTO) 0.5 x10^3/uL (0.3-0.8); MONOCYTES % (AUTO) 4.9 % (0.0-13.0); NEUTROPHILS # (AUTO) 8.1 x10^3/uL (2.2-4.8); NEUTROPHILS % (AUTO) 76.7 % (42.0-75.0); PLATELET COUNT 468 X10^3/uL (150.0-450.0); RED BLOOD COUNT 2.98 X10^6/uL (4.7-6.0); WHITE BLOOD COUNT 10.5 X10^3/uL (3.6-10.0)
--- NOTE | 2023-03-12 06:29 | NOTE.SOAP ---
Soap Note Note for Day of Date of Exam: 03/12/23 Subjective Data Subjective Data: patient seen bedside, still causing trouble and being rude to the staff on the floor. I told him he needs to be cooperative. He states he wants to leave the hospital to have a cigarette and doesnt want to be here anymore. Objective Data Objective Data: dressing clean dry and intact plantar foot. he has no evidence of necrosis. toe still with purple on it and has CFT. Minimal drainage from VAC Assessment Assessment: 63 M with severe DM foot infection and osteomyelitis right foot. Plan Plan: keep dressing clean and dry. Explained to patient to minimize ambulation continue current IV abx. cx taken in OR. Will discharge patient with antibiotics to go home with. Placed orders with case management yesterday for Home VAC device and rehab placement, pending. Anemia- patient had small amount of blood loss again yesterday. currently not symptomatic. Hgb slowly elevating, will keep monitoring. He may need a unit of PRB if becomes symptomatic or drops any lower. Cr has stabilized. Has again increased leukocytosis however likely post operative response from OR. Patient had a repeat washout with debridement and application of a Wound VAC device
[2023-03-12 06:32] LABS: ALANINE AMINOTRANSFERASE 18 Units/L (12-78); ALBUMIN 1.3 g/dL (3.4-5.0); ALKALINE PHOSPHATASE 264 Units/L (46-116); ASPARTATE AMINO TRANSFERASE 23 Units/L (15-37); BLOOD UREA NITROGEN 23 mg/dL (7-18); CALCIUM 7.6 mg/dL (8.5-10.1); CARBON DIOXIDE 21.6 mmol/L (21-32); CHLORIDE 104 mmol/L (98-107); COR CA(FOR HYPOALB) 9.8 mg/dL (8.5-10.1); COR NA(FOR HYPERGLY) 133 mmol/L (136-145); GLUCOSE 125 mg/dL (65-99); POTASSIUM 4.1 mmol/L (3.5-5.1); SODIUM 132 mmol/L (136-145); TOTAL PROTEIN 6.3 g/dL (6.4-8.2); eGFR NON BLACK RACES > 60 (>60)
--- NOTE | 2023-03-12 08:53 | PCM.PROG ---
Progress Note Progress Note for Day of Date of Exam: 03/11/23 Subjective Subjective: Pt is a 63 year old male admitted for severe DM foot infection and osteomyelitis right foot. Podiatry-Dr Almanzar and Dr Dailey following. This morning he is scheduled for debridement and washout. No acute events overnight. Labs/imaging: Wbc 9.8, Hgb 7.6, Plt 399, Na 134, 4.5, Creatinine 1.11, Glucose 144. Pt is currently on antibiotics: IV Zosyn. Wound cultures positive for multiple organisms (see report). Will continue with current treatment plan. Continue to closely monitor and follow up labs. Past Medical Family Social History Allergies: Allergies No Known Allergies Allergy (Verified 03/07/23 19:45) Review of Systems ROS changes noted: see HPI Vital Signs and I&O's Vital Signs: Vital Signs Temperature 98.2 F Pulse Rate [Left Radial] 74 Respiratory Rate 20 Blood Pressure [Left Arm] 178/80 O2 Sat by Pulse Oximetry 97 Intake and Output: Intake & Output 03/10/23 03/10/23 03/11/23 03/12/23 00:59 23:59 23:59 23:59 Intake Total 1324 / 1324 1380 / 1380 Output Total 505 / 505 700 / 700 Balance 819 / 819 680 / 680 Physical Exam Oriented: Normal, Time, Person and Place Eyes: Normal Ear: Normal Nose: Normal Throat: Normal Respiratory: Normal Cardiovascular: Normal : Normal Auscultation: Bowel Sounds: Normal Tenderness: Normal Skin: Other (multiple surgical wounds to the right foot) Musculoskeletal: Normal Psychiatric: Anxiety Mood Description: Angry Affect: Normal Speech Pattern: Clear and Appropriate Laboratory and Diagnostics 03/12/23 05:35 03/12/23 05:35 Labs: 03/11/23 08:45 Foot - Right Wound Gram Stain - Final 03/08/23 17:15 Foot - Right Wound Gram Stain - Final 03/08/23 17:15 Foot - Right Wound Culture - Preliminary Morganella Morganii Escherichia Coli 03/07/23 19:53 Foot - Right Wound Gram Stain - Final 03/07/23 19:53 Foot - Right Wound Culture - Final Proteus Vulgaris Streptococcus Dysgalactiae Laboratory WBC 10.5 X10^3/uL (3.6-10.0) H 03/12/23 05:35 RBC 2.98 X10^6/uL (4.7-6.0) L 03/12/23 05:35 Hgb 8.3 g/dL (13.5-18.0) L 03/12/23 05:35 Hct 25.3 % (42.0-54.0) L 03/12/23 05:35 MCV 84.9 fL (80.0-100.0) 03/12/23 05:35 MCH 27.9 pg (27.0-34.0) 03/12/23 05:35 MCHC 32.8 g/dL (33.0-35.0) L 03/12/23 05:35 RDW 16.0 % (11.6-16.5) 03/12/23 05:35 Plt Count 468 X10^3/uL (150.0-450.0) H 03/12/23 05:35 MPV 6.4 fL (7.4-11.0) L 03/12/23 05:35 Neut % (Auto) 76.7 % (42.0-75.0) H 03/12/23 05:35 Lymph % (Auto) 14.1 % (21.0-51.0) L 03/12/23 05:35 [place] % (Auto) 4.9 % (0.0-13.0) 03/12/23 05:35 Eos % (Auto) 3.4 % (0.9-2.9) H 03/12/23 05:35 Baso % (Auto) 0.9 % (0.2-1.0) 03/12/23 05:35 Neut # (Auto) 8.1 x10^3/uL (2.2-4.8) H 03/12/23 05:35 Lymph # (Auto) 1.5 X10^3/uL (1.3-2.9) 03/12/23 05:35 [place] # (Auto) 0.5 x10^3/uL (0.3-0.8) 03/12/23 05:35 Eos # (Auto) 0.4 x10^3/uL (0.0-0.2) H 03/12/23 05:35 Baso # (Auto) 0.1 X10^3/uL (0.0-0.1) 03/12/23 05:35 Absolute Nucleated RBC 0.0 /100WBC 03/12/23 05:35 Sodium 132 mmol/L (136-145) L 03/12/23 05:35 Corrected Sodium 133 mmol/L (136-145) L 03/12/23 05:35 Potassium 4.1 mmol/L (3.5-5.1) 03/12/23 05:35 Chloride 104 mmol/L (98-107) 03/12/23 05:35 Carbon Dioxide 21.6 mmol/L (21-32) 03/12/23 05:35 BUN 23 mg/dL (7-18) H 03/12/23 05:35 Creatinine 1.10 mg/dL (0.70-1.30) 03/12/23 05:35 Est GFR (MDRD) Af Amer > 60 (>60) 03/12/23 05:35 Est GFR (MDRD) Non-Af > 60 (>60) 03/12/23 05:35 Glucose 125 mg/dL (65-99) H 03/12/23 05:35 POC Glucose (mg/dL) 131 mg/dL (65-99) H 03/12/23 05:35 Lactic Acid 1.0 mmol/L (0.4-2.0) 03/07/23 20:01 Calcium 7.6 mg/dL (8.5-10.1) L 03/12/23 05:35 Corrected Calcium 9.8 mg/dL (8.5-10.1) 03/12/23 05:35 Total Bilirubin 0.20 mg/dL (0.2-1.0) 03/12/23 05:35 AST 23 Units/L (15-37) 03/12/23 05:35 ALT 18 Units/L (12-78) 03/12/23 05:35 Alkaline Phosphatase 264 Units/L (46-116) H 03/12/23 05:35 Total Protein 6.3 g/dL (6.4-8.2) L 03/12/23 05:35 Albumin 1.3 g/dL (3.4-5.0) L 03/12/23 05:35 Globulin 5.0 g/dL (2.5-4.5) H 03/12/23 05:35 Albumin/Globulin Ratio 0.3 Ratio (1.1-2.1) L 03/12/23 05:35 Plan (1) Diabetic foot ulcer: Status: Acute (2) Cellulitis of foot, right: Status: Acute (3) Infected wound: Status: Acute (4) Osteomyelitis of right foot: Status: Acute
[2023-03-12] MEDS: NICOTINE PATCH TD SCH (09:53)
[2023-03-12] MEDS: AUGMENTIN 875 MG/125 MG TAB PO SCH ×2 (09:53→20:11)
[2023-03-12] MEDS: CIPRO TAB 500 MG PO SCH ×2 (09:54→20:12)
[2023-03-12] MEDS: ZOLOFT PO SCH (09:54)
[2023-03-12] MEDS: ACTOS PO SCH (09:54)
[2023-03-12] MEDS ORDERED: CATAPRES TAB 0.1 MG PO ONE (21:46)
[2023-03-12] MEDS ORDERED: CATAPRES TAB 0.1 MG ONE (21:49)
[2023-03-12] MEDS ORDERED: APRESOLINE INJ 20 MG VIAL IVP ONE (22:42)
[2023-03-12] MEDS ORDERED: APRESOLINE INJ 20 MG VIAL ONE (22:53)
[2023-03-13] MEDS ORDERED: CORTEF ONE (04:01)
[2023-03-13 04:40] VITALS: TEMP 97.5; O2SAT 97
[2023-03-13] MEDS: NS 1,000 ML IV 1,000 ML IV SCH (05:52)
[2023-03-13] MEDS: NovoLIN R (or HumuLIN R) SUBCUT PRN (05:53)
[2023-03-13] MEDS: CORTEF PO SCH (06:00)
[2023-03-13] MEDS: AUGMENTIN 875 MG/125 MG TAB PO SCH (06:00)
[2023-03-13 06:26] LABS: BASOPHILS # (AUTO) 0.1 X10^3/uL (0.0-0.1); BASOPHILS % (AUTO) 0.7 % (0.2-1.0); EOSINOPHILS # (AUTO) 0.3 x10^3/uL (0.0-0.2); EOSINOPHILS % (AUTO) 2.9 % (0.9-2.9); HEMATOCRIT 24.3 % (42.0-54.0); LYMPHOCYTES # (AUTO) 1.7 X10^3/uL (1.3-2.9); LYMPHOCYTES % (AUTO) 15.1 % (21.0-51.0); MEAN CORPUSCULAR HEMOGLOBIN 28.2 pg (27.0-34.0); MEAN CORPUSCULAR VOLUME 85.4 fL (80.0-100.0); MEAN PLATELET VOLUME 6.7 fL (7.4-11.0); MONOCYTES # (AUTO) 0.5 x10^3/uL (0.3-0.8); MONOCYTES % (AUTO) 4.7 % (0.0-13.0); NEUTROPHILS # (AUTO) 8.4 x10^3/uL (2.2-4.8); NEUTROPHILS % (AUTO) 76.6 % (42.0-75.0); PLATELET COUNT 430 X10^3/uL (150.0-450.0); RED BLOOD COUNT 2.85 X10^6/uL (4.7-6.0); RED CELL DISTRIBUTION WIDTH 16.2 % (11.6-16.5)
[2023-03-13 06:45] LABS: ALANINE AMINOTRANSFERASE 15 Units/L (12-78); ALBUMIN 1.3 g/dL (3.4-5.0); ALKALINE PHOSPHATASE 216 Units/L (46-116); ASPARTATE AMINO TRANSFERASE 18 Units/L (15-37); BLOOD UREA NITROGEN 23 mg/dL (7-18); CALCIUM 7.7 mg/dL (8.5-10.1); CARBON DIOXIDE 22.5 mmol/L (21-32); CHLORIDE 104 mmol/L (98-107); COR CA(FOR HYPOALB) 9.9 mg/dL (8.5-10.1); COR NA(FOR HYPERGLY) 135 mmol/L (136-145); GLUCOSE 189 mg/dL (65-99); POTASSIUM 4.4 mmol/L (3.5-5.1); SODIUM 133 mmol/L (136-145); TOTAL PROTEIN 5.9 g/dL (6.4-8.2); eGFR NON BLACK RACES > 60 (>60)
[2023-03-13 08:16] VITALS: BP 180/80; PULSE 76; RESP 20
[2023-03-13] MEDS: CIPRO TAB 500 MG PO SCH (08:43)
[2023-03-13] MEDS: ACTOS PO SCH (08:43)
[2023-03-13] MEDS: ZOLOFT PO SCH (08:43)
[2023-03-13] MEDS: NICOTINE PATCH TD SCH (08:44)
--- NOTE | 2023-03-13 08:49 | PCM.PROG ---
Progress Note Progress Note for Day of Date of Exam: 03/12/23 Subjective Subjective: Pt is a 63 year old male admitted for severe DM foot infection and osteomyelitis right foot. Podiatry-Dr Almanzar and Dr Dailey following. This morning he is resting in bed comfortably. No acute events overnight. He has a wound vac placed. Labs/imaging: Wbc 10.5, Hgb 8.3, Plt 468, Na 132, 4.1, Creatinine 1.10, Glucose 125. Pt is currently on antibiotics: IV Zosyn. Wound cultures positive for multiple organisms (see report). Otherwise, continue with current treatment plan. Continue to closely monitor and follow up labs. Past Medical Family Social History Allergies: Allergies No Known Allergies Allergy (Verified 03/07/23 19:45) Review of Systems ROS changes noted: see HPI Vital Signs and I&O's Vital Signs: Vital Signs Temperature 97.5 F Temperature 97.5 F Pulse Rate [Apical] 76 Pulse Rate [Apical] 71 Respiratory Rate 20 Respiratory Rate 18 Blood Pressure [Left Arm] 180/80 Blood Pressure [Left Arm] 163/79 Blood Pressure [Left Arm] 174/75 O2 Sat by Pulse Oximetry 97 O2 Sat by Pulse Oximetry 97 Intake and Output: Intake & Output 03/10/23 03/11/23 03/12/23 03/13/23 23:59 23:59 23:59 23:59 Intake Total 1324 / 1324 4377 / 4377 608 / 608 Output Total 505 / 505 1000 / 1000 940 / 940 Balance 819 / 819 3377 / 3377 -332 / -332 Physical Exam Oriented: Normal, Time, Person and Place Eyes: Normal Ear: Normal Nose: Normal Throat: Normal Respiratory: Normal Cardiovascular: Normal : Normal Auscultation: Bowel Sounds: Normal Tenderness: Normal Skin: Other (multiple surgical wounds to the right foot, wound vac placed) Musculoskeletal: Normal Psychiatric: Anxiety Mood Description: Angry Affect: Normal Speech Pattern: Clear and Appropriate Laboratory and Diagnostics 03/13/23 05:18 03/13/23 05:18 Labs: 03/11/23 08:45 Foot - Right Wound Gram Stain - Final 03/11/23 08:45 Foot - Right Wound Culture - Preliminary 03/08/23 17:15 Foot - Right Wound Gram Stain - Final 03/08/23 17:15 Foot - Right Wound Culture - Preliminary Morganella Morganii Escherichia Coli 03/07/23 19:53 Foot - Right Wound Gram Stain - Final 03/07/23 19:53 Foot - Right Wound Culture - Final Proteus Vulgaris Streptococcus Dysgalactiae Laboratory WBC 11.0 X10^3/uL (3.6-10.0) H 03/13/23 05:18 RBC 2.85 X10^6/uL (4.7-6.0) L 03/13/23 05:18 Hgb 8.0 g/dL (13.5-18.0) L 03/13/23 05:18 Hct 24.3 % (42.0-54.0) L 03/13/23 05:18 MCV 85.4 fL (80.0-100.0) 03/13/23 05:18 MCH 28.2 pg (27.0-34.0) 03/13/23 05:18 MCHC 33.0 g/dL (33.0-35.0) 03/13/23 05:18 RDW 16.2 % (11.6-16.5) 03/13/23 05:18 Plt Count 430 X10^3/uL (150.0-450.0) 03/13/23 05:18 MPV 6.7 fL (7.4-11.0) L 03/13/23 05:18 Neut % (Auto) 76.6 % (42.0-75.0) H 03/13/23 05:18 Lymph % (Auto) 15.1 % (21.0-51.0) L 03/13/23 05:18 [place] % (Auto) 4.7 % (0.0-13.0) 03/13/23 05:18 Eos % (Auto) 2.9 % (0.9-2.9) 03/13/23 05:18 Baso % (Auto) 0.7 % (0.2-1.0) 03/13/23 05:18 Neut # (Auto) 8.4 x10^3/uL (2.2-4.8) H 03/13/23 05:18 Lymph # (Auto) 1.7 X10^3/uL (1.3-2.9) 03/13/23 05:18 [place] # (Auto) 0.5 x10^3/uL (0.3-0.8) 03/13/23 05:18 Eos # (Auto) 0.3 x10^3/uL (0.0-0.2) H 03/13/23 05:18 Baso # (Auto) 0.1 X10^3/uL (0.0-0.1) 03/13/23 05:18 Absolute Nucleated RBC 0.0 /100WBC 03/13/23 05:18 Sodium 133 mmol/L (136-145) L 03/13/23 05:18 Corrected Sodium 135 mmol/L (136-145) L 03/13/23 05:18 Potassium 4.4 mmol/L (3.5-5.1) 03/13/23 05:18 Chloride 104 mmol/L (98-107) 03/13/23 05:18 Carbon Dioxide 22.5 mmol/L (21-32) 03/13/23 05:18 BUN 23 mg/dL (7-18) H 03/13/23 05:18 Creatinine 1.10 mg/dL (0.70-1.30) 03/13/23 05:18 Est GFR (MDRD) Af Amer > 60 (>60) 03/13/23 05:18 Est GFR (MDRD) Non-Af > 60 (>60) 03/13/23 05:18 Glucose 189 mg/dL (65-99) H 03/13/23 05:18 POC Glucose (mg/dL) 193 mg/dL (65-99) H 03/13/23 05:13 Lactic Acid 1.0 mmol/L (0.4-2.0) 03/07/23 20:01 Calcium 7.7 mg/dL (8.5-10.1) L 03/13/23 05:18 Corrected Calcium 9.9 mg/dL (8.5-10.1) 03/13/23 05:18 Total Bilirubin 0.10 mg/dL (0.2-1.0) L 03/13/23 05:18 AST 18 Units/L (15-37) 03/13/23 05:18 ALT 15 Units/L (12-78) 03/13/23 05:18 Alkaline Phosphatase 216 Units/L (46-116) H 03/13/23 05:18 Total Protein 5.9 g/dL (6.4-8.2) L 03/13/23 05:18 Albumin 1.3 g/dL (3.4-5.0) L 03/13/23 05:18 Globulin 4.6 g/dL (2.5-4.5) H 03/13/23 05:18 Albumin/Globulin Ratio 0.3 Ratio (1.1-2.1) L 03/13/23 05:18 Plan (1) Diabetic foot ulcer: Status: Acute (2) Cellulitis of foot, right: Status: Acute (3) Infected wound: Status: Acute (4) Osteomyelitis of right foot: Status: Acute
== END 2023-03-13 12:25 | disposition home health service (06) | DRG 623 ==
LOC: ER 19:00 → MED/SURG 19:00 → OBSVTOIN 22:53 → MED/SURG 03-08 00:42
PROVIDERS: ADMIT Family Medicine; ATTEND Family Medicine
DX: B96.89 Other specified bacterial agents as the cause of diseases classified elsewhere; L03.115 Cellulitis of right lower limb; B95.2 Enterococcus as the cause of diseases classified elsewhere; B95.4 Other streptococcus as the cause of diseases classified elsewhere; M79.671 Pain in right foot; D64.89 Other specified anemias; L02.611 Cutaneous abscess of right foot; B96.4 Proteus (mirabilis) (morganii) as the cause of diseases classified elsewhere; E11.621 Type 2 diabetes mellitus with foot ulcer; B96.29 Other Escherichia coli [E. coli] as the cause of diseases classified elsewhere